=== PATIENT | male | born 1970 | race Caucasian/White ===

== ENCOUNTER 2019-05-28 07:25 | Day surgery (SDC) | payer BC ==
[~2019-05-28] VITALS: Ht 190.5 cm; Wt 83.6 kg
[~2019-05-28 07:25] MED LIST: ADVICOR 20 MG-51 TER PO; ALBUTEROL0.09 MG/A1 IH; ASPIR-LOW81 MG PO; ASPIRIN 81M81 MG/TA2 PO; COREG 6.256.25 MG/TA PO; COREG12.5 MG PO; EXCEDRIN 250 MG1 TAB PO; MINOCYCLIN100 MG/CAP PO; PROVENTIL0.09 MG/A1 IH; SINGULAIR 110 MG/TAB PO; SINGULAIR10 MG PO; TRIAMTERENE W/H1 CAP PO; VENTOLIN0.09 MG IH; ZOCOR 40MG40 MG PO; ZOCOR5 MG PO; ZYRTEC 10MG10 MG PO; ZYRTEC10 MG PO
[2019-05-28 07:53] VITALS: BP 141/94; PULSE 70; TEMP 98
[2019-05-28] MEDS ORDERED: COZAAR100 MG PO (08:26)
[2019-05-28] MEDS ORDERED: REVATIO20 MG PO (08:27)
[2019-05-28] MEDS ORDERED: FLONASEALLERGY NS (08:28)
[2019-05-28 08:55] VITALS: BP 121/76; PULSE 86; TEMP 97.8
--- NOTE | 2019-05-28 08:55 | NUR ---
Pt to GI bay 2 via cart from [place]. Pt drowsy, but awake. Pt ambulates to recliner with stand by assistance. Muffin, applesauce and water given per pt request. in room. Will continue to monitor. Call light within reach.
[2019-05-28 09:10] VITALS: BP 128/89; PULSE 73
--- NOTE | 2019-05-28 09:10 | NUR ---
Pt continues to rest. Tolerating food and po fluids without difficulties. Denies needs. Call light within reach.
[2019-05-28 09:25] VITALS: BP 129/85; PULSE 64
--- NOTE | 2019-05-28 09:25 | NUR ---
Pt continues to rest. Denies needs. Visiting with .
[2019-05-28 09:40] VITALS: BP 123/79; PULSE 58
--- NOTE | 2019-05-28 09:40 | NUR ---
Pt continues to rest. Denies needs. Call light within reach.
--- NOTE | 2019-05-28 10:00 | NUR ---
Discharge instructions reviewed. Pt voices understanding. IV site discontinued with all parts intact. Pt up to dress. Call light within reach.
--- NOTE | 2019-05-28 10:07 | NUR ---
Pt escorted to private car via wheel chair. Pt accompanied home by his . Call light within reach.
== END 2019-05-28 10:08 | disposition home or self-care (01) ==
LOC: SDCO 07:25
DX: Z12.11 Encounter for screening for malignant neoplasm of colon (principal); K60.1 Chronic anal fissure; K59.00 Constipation, unspecified; R19.7 Diarrhea, unspecified; I10 Essential (primary) hypertension; E78.00 Pure hypercholesterolemia, unspecified; J45.909 Unspecified asthma, uncomplicated; N45.1 Epididymitis; Z83.79 Family history of other diseases of the digestive system
CPT/HCPCS: J2250; J2405; J3010; J7030

== ENCOUNTER 2020-02-29 05:33 | Day surgery (SDC) | payer BC ==
[2020-02-29] VITALS (11 sets, daily range): BP systolic 119–136; BP diastolic 65–90; PULSE 55–74; TEMP 97.6–98.6
[~2020-02-29] VITALS: Ht 190.5 cm; Wt 88.0 kg
[~2020-02-29 05:33] MED LIST changes: +COZAAR100 MG PO; +FLONASEALLERGY NS; +KLONOPIN 0.5MG0.5 MG PO; +REVATIO20 MG PO; +VITAMIND3 5000 PO
--- NOTE | 2020-02-29 06:53 | NUR ---
Patient escorted to the restroom at this time.
--- NOTE | 2020-02-29 07:26 | NUR ---
Patient to the OR with Rachelle Dinero RN at this time. His belongings are labeled and taken to the PACU.
--- NOTE | 2020-02-29 10:30 | NUR ---
PT IN BED, LOOKED AT DRESSING WITH PACU NURSE, NO DRAINAGE APPARENT, SUTURE REMOVAL KIT AT BEDSIDE PER PHYSICIAN ORDER, IV TO RH, WILL BECOME INT ONCE PT STARTS ORAL INTAKE , PT REPORTING PAIN AT SITE AT A 2/10, PT EATING ICE CHIPS WITH NO NAUSEA/VOMITING, REPORTED WANTING TO WAIT ON DRINKING WATER BECAUSE HE DID NOT WANT TO HAVE TO GET UP A LOT TO USE THE RESTROOM. PT ALSO REPORTED SORE THROAT. PT ATTACHED TO VITALS CART FOR POST OP VITALS. PT ASKED A FEW QUESTIONS ABOUT MOVEMENT, INFORMED HIM HE COULD MOVE AROUND AND MOVE HIS NECK BUT TO AVOID CLEARING THE THROAT, PT VERBALIZED UNDERSTANDING. PT REPORTED HE WOULD CALL HIS AND USE THE CALL LIGHT WHEN HE NEEDED TO GET UP. PT APPEARS ANXIOUS. BED KEPT ABOVE 15 DEGREES PER PHYSICIAN ORDER.
--- NOTE | 2020-02-29 12:19 | NUR ---
PT REPORTING A SLIGHT CHEST TIGHTNESS AND HE STATED HE NORMALLY WOULD TAKE A PUFF OF HIS INHALER FOR THIS, I OFFERED TO CALL PHYSICAL THERAPY FOR HIM TO PROVIDE A BREATHING TREATEMENT OR PROVIDE AN INHALER AND HE STATED THAT IT WASNT BAD ENOUGH FOR ME TO CALL, FOLLOWING UP ON THIS COMPLAINT HE SAYS HES FEELING BETTER BUT "STILL NOT 100%". PT REPORTS PAIN STILL AT AROUND A 2/10. A DROP OF BLOOD NOTICED THROUGH [facility].
--- NOTE | 2020-02-29 13:11 | NUR ---
PT REPORTED WANTING AN INHALER ON HIS MAR INCASE HE NEEDED IT LATER ON, AISLINN NOTIFED, ALSO MENTIONED STARTING A PRN ANXIETY MEDICATION.
--- NOTE | 2020-02-29 18:39 | NUR ---
PT REPORTING PAIN 2-3 THROUGHOUT SHIFT. NO NEW BLEEDING. VITALS STABLE, PT APPEARS ANXIOUS BUT REFUSES ANXIETY MEDICATIONS, VERY INVOLVED IN CARE, ASKS MANY QUESTIONS, NO OTHER NEEDS AT THIS TIME. PT HAS STEADY GAIT WHEN GETTING UP TO USE THE RESTROOM, PT GOOD ABOUT USING CALL LIGHT BEFORE HE GETS UP.
--- NOTE | 2020-02-29 20:00 | NUR ---
Pt in bed, is alert and oriented x4. Has drsg to lower neck with old spot of drainage noted. No swelling or crepitus noted at site, speaking with clear strong voice and denies difficulty swallowing. Pt concerned he won't be able to sleep and asks for Melatonin if he should need it. Dr Mejia notified and new order received. INT to right hand, flushes well.
--- NOTE | 2020-02-29 23:20 | NUR ---
Melatonin 6mg po given per pt request. VS completed at this time. Denies need for pain meds at this time.
[2020-03-01 00:03] VITALS: BP 131/74; PULSE 65; TEMP 97.5
[2020-03-01 04:22] VITALS: BP 120/71; PULSE 64; TEMP 97.4
--- NOTE | 2020-03-01 06:25 | NUR ---
Denies need for pain meds at this time.
[2020-03-01 08:14] VITALS: BP 127/72; PULSE 72; TEMP 97.2
--- NOTE | 2020-03-01 10:35 | NUR ---
Patient alert and oriented, answers questions appropriately. See assessment. Neck incision with edges well approximated, no redness or drainage noted. Tenderness noted to incision site. No difficulty swallowing. Chvosteck sign negative. No other c/o at this time.
[2020-03-01] MEDS ORDERED: NORCO 325 MG-51 TAB PO (11:23)
--- NOTE | 2020-03-01 12:48 | NUR ---
Discharge instructions reviewed with patient, verbalized understanding. Discharged ambulatory to auto/home with spouse at 1245.
== END 2020-03-01 12:50 | disposition home or self-care (01) ==
LOC: SDCO 05:33 → SURG 11:00 → SDCO 03-01 12:50
DX: C73 Malignant neoplasm of thyroid gland (principal); J45.909 Unspecified asthma, uncomplicated; I10 Essential (primary) hypertension; E78.2 Mixed hyperlipidemia; Z79.899 Other long term (current) drug therapy; G47.33 Obstructive sleep apnea (adult) (pediatric); F41.9 Anxiety disorder, unspecified; I25.10 Atherosclerotic heart disease of native coronary artery without angina pectoris
CPT/HCPCS: OP; J0330; J0690; J1100; J1885; J2405; J2704; J3010; J7042; J7120

== ENCOUNTER → 2020-07-25 | Outpatient (CLI) | payer BC ==
[~2020-07-25] VITALS: Ht 190.5 cm; Wt 87.5 kg
[~2020-07-25] MED LIST changes: +NORCO 325 MG-51 TAB PO
[2020-07-25 13:05] VITALS: BP 162/93; PULSE 74
[2020-07-25 14:15] VITALS: BP 147/87; PULSE 71
== END ==
LOC: COL.RAD 12:45
DX: E04.1 Nontoxic single thyroid nodule (principal)

== ENCOUNTER → 2021-10-30 | Outpatient (CLI) | payer BC | LOC: COL.RAD 07:05 | DX: R20.0 Anesthesia of skin (principal); R20.2 Paresthesia of skin | CPT/HCPCS: A9585 ==

== ENCOUNTER 2022-01-12 11:27 | Emergency (ER) | payer BC ==
[~2022-01-12] VITALS: Ht 190.5 cm; Wt 89.1 kg
[2022-01-12 11:36] VITALS: TEMP 98.5
[2022-01-12] MEDS ORDERED: COMPLETE MULTI1 TAB PO (12:07)
[2022-01-12] MEDS ORDERED: VITAMIN B12 1541 TAB PO (12:07)
[2022-01-12 12:42] VITALS: BP 142/97; PULSE 84
== END 2022-01-12 12:40 | disposition home or self-care (01) ==
LOC: COL.ER 11:27
DX: R04.0 Epistaxis (principal)